=== PATIENT | female | born 1970 | race Caucasian/White ===

== ENCOUNTER → 2017-08-10 | Outpatient (CLI) | payer OTHER ==
[~2017-08-10] MED LIST: AMOXICILLIN500 MG PO; ANAPROX DS550 MG PO; ATIVAN0.5 MG PO; ATIVAN2 MG PO; B12,B-12,B 12500 MC1 PO; CELEXA10 MG PO; CIPROFLOXACIN500 MG PO; CLARITIN-D 10 M1 T21 PO; CLEOCIN150 MG PO; DAYPRO600 M1 PO; FLEXERIL10 MG PO; FLEXERIL5 MG PO; FOLIC ACID1 MG PO; IBU-8800 MG PO; LISINOPRIL20 MG PO; NAPROSYN500 MG PO; PERCOCET 325 MG1 TA2 PO; PREDNICOT20 MG PO; PYRIDIUM200 MG PO; ROBAXIN750 MG PO; ROBITUSSIN DM 105 ML PO; SEPTRA DS 800 M1 TAB PO; VICODIN ES 7501 TAB PO; VISTARIL25 M1 PO; ZANTAC150 MG PO; ZOCOR20 MG PO
== END | disposition home or self-care (01) ==
LOC: RAD 10:39
DX: M25.552 Pain in left hip (principal); R20.0 Anesthesia of skin; Z90.710 Acquired absence of both cervix and uterus

== ENCOUNTER → 2017-09-07 | Outpatient (CLI) | payer OTHER | END | disposition home or self-care (01) | LOC: RAD 11:43 | DX: M48.061 Spinal stenosis, lumbar region without neurogenic claudication (principal) ==

== ENCOUNTER → 2017-09-18 | Outpatient (CLI) | payer OTHER | END | disposition home or self-care (01) | LOC: MRI 09:55 | DX: M43.8X6 Other specified deforming dorsopathies, lumbar region (principal); M48.061 Spinal stenosis, lumbar region without neurogenic claudication ==

== ENCOUNTER 2018-05-29 08:54 | Emergency (ER) | payer OTHER ==
[~2018-05-29] VITALS: Ht 165.1 cm; Wt 95.3 kg
--- NOTE | ~2018-05-29 | EKG ---
[place], [place] ELECTROCARDIOGRAM REPORT NAME: [place] MCGEE UNIT #: [id number] ROOM: DOCTOR: EPIPHANY DRAFT REPORT BIRTHDATE: [birth year] [facility] Test Date: 2018-05-29 Test Time: 09:17:44 Pat Name: [place] MCGEE Department: Room: Gender: F [employer] Tech: : 1970 Requested By: CARMELITA GUEVARA Order Number: [id number] Reading MD: Ned Mancini MD Measurements Intervals [place] Rate: 106 P: 70 SC: 126 QRS: 52 QRSD: 95 T: 106 QT: 335 QTc: 445 Interpretive Statements Sinus tachycardia Multiple ventricular premature complexes Low voltage, extremity leads Nonspecific T abnormalities, lateral leads No previous ECG available for comparison Electronically Signed On 06-01-2018 11:56:35 PST by Ned Mancini MD CM:EKGRPT:ELECTROCARDIOGRAM REPORT [id number] CARMELITA GUEVARA EPIPHANY DRAFT REPORT CARMELITA GUEVARA
[~2018-05-29 08:54] MED LIST changes: +SEPTDS PO
[2018-05-29] MEDS ORDERED: FLONASE ALLERG9.9 ML NAS (09:24)
[2018-05-29] MEDS ORDERED: PREDNISONE10 MG PO (09:24)
[2018-05-29] MEDS ORDERED: CLARITIN10 MG PO (09:24)
[2018-05-29 09:25] LABS: BASO # 0.1 10*3/uL (0.0-0.1); BASO % 0.7 % (0.0-1.0); EOS # 0.1 10*3/uL (0.0-0.4); EOS % 1.2 % (1.0-4.0); HEMATOCRIT 43.4 % (37.0-47.0); HEMOGLOBIN 14.2 g/dl (12.0-16.0); LYMPH # 1.6 10*3/uL (1.3-4.4); MEAN CELL VOLUME 84.1 fl (81.0-99.0); MEAN CORPUSCULAR HGB 27.5 pg (27.0-31.0); MEAN CORPUSCULAR HGB CONC 32.7 g/dl (33.0-37.0); MEAN PLATELET VOLUME 8.9 fl (9.6-12.3); MONO # 0.7 10*3/uL (0.1-1.0); MONO % 9.1 % (3.0-9.0); NEUT % 67.6 % (47.0-73.0); PLATELET COUNT AUTOMATED 257 10*3/uL (130-400); RED BLOOD COUNT 5.16 10*6/uL (4.10-5.10); RED CELL DISTRI WIDTH 13.6 % (0-14.5); WHITE BLOOD COUNT 7.4 10*3/uL (4.8-10.8)
[2018-05-29 09:47] LABS: ALBUMIN 3.2 gm/dl (3.1-4.5); ALKALINE PHOSPHATASE 117 U/L (45-117); BUN 5 mg/dl (7-24); CHLORIDE 102 mmol/L (98-107); CREATININE 0.96 mg/dL (0.55-1.02); POTASSIUM 3.6 mmol/L (3.5-5.1); SGOT/AST 9 IU/L (3-35); SGPT/ALT 17 U/L (12-78); SODIUM 135 mmol/L (136-145); TOTAL PROTEIN 7.3 gm/dL (6.4-8.2)
[2018-05-29 09:51] LABS: TROPONIN I < 0.015 ng/ml (<0.045)
[2018-05-29] MEDS ORDERED: TESSALON PERLE100 M1 PO (10:32)
== END 2018-05-29 10:56 | disposition home or self-care (01) ==
LOC: ED 08:54
PROVIDERS: Nurse Practitioner Family
DX: J20.9 Acute bronchitis, unspecified (principal); R03.0 Elevated blood-pressure reading, without diagnosis of hypertension; F17.200 Nicotine dependence, unspecified, uncomplicated; Z79.2 Long term (current) use of antibiotics; Z79.899 Other long term (current) drug therapy; Z90.710 Acquired absence of both cervix and uterus; Z90.49 Acquired absence of other specified parts of digestive tract

== ENCOUNTER → 2022-11-25 | Outpatient (CLI) | payer MEDICAID ==
[~2022-11-25] MED LIST changes: +CLARITIN10 MG PO; +FLONASE ALLERG9.9 ML NAS; +PREDNISONE10 MG PO; +TESSALON PERLE100 M1 PO
== END | disposition home or self-care (01) ==
LOC: RAD 12:51
PROVIDERS: ATTEND Nurse Practitioner
DX: M25.461 Effusion, right knee (principal)

== ENCOUNTER → 2023-02-19 | Outpatient (CLI) | payer OTHER | END | disposition home or self-care (01) | LOC: MAMMO 13:00 | PROVIDERS: ATTEND Emergency Medicine | DX: N63.21 Unspecified lump in the left breast, upper outer quadrant (principal); R92.2 Inconclusive mammogram; R92.1 Mammographic calcification found on diagnostic imaging of breast; D17.9 Benign lipomatous neoplasm, unspecified ==